=== PATIENT | male | born 1985 | race Caucasian/White ===

== ENCOUNTER 2018-08-01 12:03 | Inpatient (IN) | payer MEDICAID ==
[~2018-08-01] VITALS: Ht 180.3 cm; Wt 97.5 kg
[2018-08-01] MEDS ORDERED: SUMA50TA PO (12:16)
[2018-08-01] MEDS ORDERED: METO10TA3 PO (12:16)
[2018-08-01] MEDS ORDERED: TORADOL PO (12:17)
[2018-08-01] MEDS ORDERED: diphenhydrAMINE 50 MG/1 ML VIAL IV ONE (12:30)
[2018-08-01] MEDS ORDERED: METOCLOPRAMIDE HCL 10 MG/2 ML VIAL IV ONE (12:30)
[2018-08-01] MEDS ORDERED: CEFTRIAXONE 1 G in IV DEXTROSE 5% 50 ML IV ONE ×2 (12:30→13:30)
[2018-08-01] MEDS ORDERED: MORPHINE SULFATE 2 MG/1 ML DISP.SYRIN IV ONE (12:30)
[2018-08-01] MEDS ORDERED: MORPHINE SULFATE 4 MG/1 ML DISP.SYRIN ONE (12:38)
[2018-08-01] MEDS ORDERED: diphenhydrAMINE 50 MG/1 ML VIAL ONE (12:38)
[2018-08-01] MEDS ORDERED: METOCLOPRAMIDE HCL 10 MG/2 ML VIAL ONE (12:38)
[2018-08-01] MEDS ORDERED: CEFTRIAXONE 1 G VIAL ONE ×2 (12:39→13:27)
[2018-08-01] MEDS ORDERED: HYDROMORPHONE 1 MG/1 ML DISP.SYRIN ONE ×3 (12:59→16:04)
[2018-08-01] MEDS ORDERED: ONDANSETRON 4 MG/2 ML VIAL ONE ×3 (12:59→16:04)
[2018-08-01] MEDS ORDERED: ONDANSETRON 4 MG/2 ML VIAL IV ONE ×2 (13:00→16:00)
[2018-08-01] MEDS ORDERED: HYDROMORPHONE 1 MG/1 ML DISP.SYRIN IV ONE ×3 (13:00→16:00)
[2018-08-01] MEDS ORDERED: IV NORMAL SALINE 1000 ML BAG IV ONE (13:30)
[2018-08-01 13:37] LABS: BASOPHILS % (AUTO) 0.2 % (0.0-2.0); EOSINOPHILS % (AUTO) 0.1 % (0.0-7.0); HEMATOCRIT 45.1 % (36.7-47.1); HEMOGLOBIN 15.5 g/dL (12.5-16.3); LYMPHOCYTES # (AUTO) 0.5 K/uL (20.0-40.0); LYMPHOCYTES % (AUTO) 4.1 % (20.5-51.5); MEAN CORPUSCULAR HEMOGLOBIN 30.5 uug (23.8-33.4); MEAN CORPUSCULAR HGB CONC 34 g/dL (32.5-36.3); MEAN CORPUSCULAR VOLUME 88.7 fL (73.0-96.2); MONOCYTES # (AUTO) 0.7 K/uL (2.0-10.0); MONOCYTES % (AUTO) 5.3 % (0.0-11.0); NEUTROPHILS # (AUTO) 12.2 K/uL (1.8-8.9); NEUTROPHILS % (AUTO) 90.3 % (38.5-71.5); PLATELET COUNT (AUTO) 313 K/uL (152-348); RED BLOOD CELL COUNT(AUTO) 5.08 MIL/uL (4.06-5.63); WHITE BLOOD COUNT (AUTO) 13.5 K/uL (3.6-10.2)
[2018-08-01 13:44] LABS: CREATININE 1.1 mg/dL (0.6-1.3); POTASSIUM 3.6 mmol/L (3.5-5.1)
--- NOTE | 2018-08-01 13:47 | NUR ---
Called IR Dr Hogue @ phone number [phone] @ [phone]. Per , to have ER Dr Velasco call him in regards to LP.
[2018-08-01 13:50] LABS: BILIRUBIN,TOTAL 0.8 mg/dL (0.2-1.0); TOTAL PROTEIN, SERUM 7.7 g/dL (6.4-8.2)
[2018-08-01 15:22] LABS: CSF GLUCOSE 67 mg/dL (40-70); CSF PROTEIN 72 mg/dL (15-45)
[2018-08-01] MEDS ORDERED: MAGNESIUM HYDROXIDE 30 ML LIQUID UDC PO PRN (15:30)
[2018-08-01] MEDS ORDERED: TEMAZEPAM 15 MG CAPSULE PO PRN (15:30)
[2018-08-01] MEDS ORDERED: HYDROCODONE/APAP 10-325 MG TABLET PO PRN (15:30)
[2018-08-01 17:08] VITALS: BP 120/69
--- NOTE | 2018-08-01 17:09 | NUR ---
Pt. admitted to [facility], under care of Rito Negron Belongs List completed
--- NOTE | 2018-08-01 17:15 | NUR ---
NEW PATIENT FROM ER TO ROOM 205 AWAKE ALERT COOPERATE WELL VS TAKEN LOW GRADE TEMP NO PAIN OR N/V AT THIS TIME CALL SYSTEM INSTRUCTION CONTINUE IVF ON LFA INFUSION WELL
--- NOTE | 2018-08-01 18:30 | NUR ---
EAT DINNER WELL FAMILY FRIEND AT BEDSIDE RESTING
[2018-08-01] MEDS: IV NS 1000 ML 1,000 ML IV PRN (18:42)
--- NOTE | 2018-08-01 19:20 | NUR ---
RECEIVED PT AWAKE,ALERT, AND ORIENTEDX4. PT SHOWS NO SIGNS OF ACUTE DISTRESS. CALL LIGHT WITHIN REACH.PT GIRLFRIEND ON BEDSIDE. SAFETY AND COMFORT PROVIDED. WILL CONTINUE TO MONITOR.
[2018-08-01 20:25] VITALS: BP 111/59
[2018-08-01] MEDS ORDERED: FLUCONAZOLE 200 MG/NS 100ML IV 100 MG in PREMIXED 1 EACH IV SCH ×2 (20:30→20:45)
[2018-08-01] MEDS: ONDANSETRON 4 MG/2 ML VIAL IV PRN (20:36)
[2018-08-01] MEDS: ACETAMINOPHEN 325 MG TABLET PO PRN (20:36)
[2018-08-01] MEDS: HYDROMORPHONE 1 MG/1 ML DISP.SYRIN IV PRN (20:37)
--- NOTE | 2018-08-01 20:37 | NUR ---
PT GIVEN ZOFRAN FOR NAUSEA AND DILAUDID FOR PAIN. PT VITAL SIGNS STABLE. WILL CONTINUE TO MONITOR.
[2018-08-01] MEDS ORDERED: NYSTATIN SUSPENSION 5 ML LIQUID UDC PO SCH (21:00)
[2018-08-01] MEDS ORDERED: VANCOMYCIN IV 200 ML IV SCH (21:00)
[2018-08-01] MEDS: NYSTATIN SUSPENSION 5 ML LIQUID UDC PO SCH (21:09)
[2018-08-01] MEDS ORDERED: FLUCONAZOLE 200 MG/100 ML PIGGYBACK ONE (21:33)
[2018-08-02] MEDS ORDERED: VANCOMYCIN IV 200 ML ONE (00:16)
[2018-08-02] MEDS: HYDROMORPHONE 1 MG/1 ML DISP.SYRIN IV PRN ×4 (00:39→13:20)
--- NOTE | 2018-08-02 00:48 | NUR ---
PT TEMPERATURE AT 2332H WAS 100.5. GAVE COOLING MEASURES TO THE PT. AT 0041H TEMP OF THE PT WAS 99.6. PT SHOWS NO SIGNS OF DISTRESS BUT PT CAOMPLAIN OF HEADACHE SO 0039H GAVE DIALUDID 1MG. SAFETY AND COMFORT PROVIDED. WILL CONTINUE TO MONITOR.
[2018-08-02] MEDS: ACETAMINOPHEN 325 MG TABLET PO PRN ×2 (03:52→14:33)
[2018-08-02 04:53] VITALS: BP 140/61
[2018-08-02 06:07] LABS: BASOPHILS % (AUTO) 0.2 % (0.0-2.0); HEMATOCRIT 41.3 % (36.7-47.1); HEMOGLOBIN 14.1 g/dL (12.5-16.3); LYMPHOCYTES # (AUTO) 0.7 K/uL (20.0-40.0); LYMPHOCYTES % (AUTO) 4.7 % (20.5-51.5); MEAN CORPUSCULAR HEMOGLOBIN 30.5 uug (23.8-33.4); MEAN CORPUSCULAR HGB CONC 34 g/dL (32.5-36.3); MEAN CORPUSCULAR VOLUME 89.3 fL (73.0-96.2); MONOCYTES # (AUTO) 1.5 K/uL (2.0-10.0); MONOCYTES % (AUTO) 10.5 % (0.0-11.0); NEUTROPHILS # (AUTO) 12.2 K/uL (1.8-8.9); NEUTROPHILS % (AUTO) 84.6 % (38.5-71.5); PLATELET COUNT (AUTO) 267 K/uL (152-348); RED BLOOD CELL COUNT(AUTO) 4.62 MIL/uL (4.06-5.63); WHITE BLOOD COUNT (AUTO) 14.4 K/uL (3.6-10.2)
[2018-08-02 06:23] LABS: MAGNESIUM 1.5 mg/dL (1.8-2.4); PHOSPHOROUS 2.4 mg/dL (2.5-4.9)
--- NOTE | 2018-08-02 06:35 | NUR ---
PT SLEPT INTERMITTENTLY. PT SHOWS NO SIGNS OF DISTRESS. PT RECENT TEMP IS 99.7. COOLING MEASURES DONE. PT BECOME 100.5 AGAIN NOW AFEBRILE.PT IV INTACT. PRESCRIBED MEDICATION GIVEN AND PT TOLERATED IT WELL. CALL LIGHT WITHIN REACH. SAFETY AND COMFORT PROVIDED.ALL NEEDS ARE MET. WILL ENDORSE TO INCOMING NURSE FOR CONTINUITY OF CARE.
[2018-08-02] MEDS: IV NS 1000 ML 1,000 ML IV PRN (07:39)
[2018-08-02] MEDS ORDERED: MAGNESIUM SULFATE/D5W 100 ML IV SCH (08:15)
[2018-08-02] MEDS ORDERED: IV NS 1000 ML 1,000 ML IV PRN (08:25)
[2018-08-02] MEDS ORDERED: NEUTRA PHOS PACKET PO ONE (08:30)
[2018-08-02] MEDS ORDERED: POTASSIUM CHLORIDE 20 MEQ TAB.PRT.SR PO ONE ×3 (08:30→13:00)
[2018-08-02] MEDS: NYSTATIN SUSPENSION 5 ML LIQUID UDC PO SCH ×2 (08:47→13:23)
[2018-08-02] MEDS: ONDANSETRON 4 MG/2 ML VIAL IV PRN (08:48)
[2018-08-02] MEDS ORDERED: VANCOMYCIN IV 1,500 MG in IV DEXTROSE 5% 500 ML IV SCH (09:00)
[2018-08-02 11:50] VITALS: BP 114/62
[2018-08-02] MEDS ORDERED: CEFTRIAXONE 2 G in IV DEXTROSE 5% 100 ML IV SCH (12:45)
[2018-08-02] MEDS ORDERED: CEFTRIAXONE 1 G in IV DEXTROSE 5% 50 ML IV SCH (13:00)
[2018-08-02] MEDS ORDERED: CEFTRIAXONE 2 G in IV DEXTROSE 5% 50 ML IV SCH (13:00)
[2018-08-02] MEDS ORDERED: ACYCLOVIR IV 500 MG in IV DEXTROSE 5% 100 ML IV SCH (14:00)
--- NOTE | 2018-08-02 14:39 | NUR ---
Clinical Pharmacy Note: Vancomycin Pharmacy to Dose Subjecitve: To start vancomycin in this 32 y/o male for indication of "documented infection." MDs evaluating for possible bacterial meningitis Objective: weight 97kg height 180cm BUN 16 Scr 1.0 Wbc 14.4 temp 103.1 1gm given 08/02 @0026 Trough due tomorrow at 1130 Assessment/Plan To start vanco 1500mg Q9h for estimated trough of 16.6, first dose today at 0900. Trough due tomorrow at 1130, will check trough at that time and adjust as needed. Will follow
--- NOTE | 2018-08-02 15:25 | NUR ---
PT DC TO [facility] VIA [facility]. PT STABLE TO DC, AOX4, VISITOR AT BEDSIDE, ROOM AIR, SKIN INTACT, DC WITH IV LEFT FOREARM 20 GAUGE PATENT, AMBULATORY. PT DC WITH EXIT CARE PACKET, AND ALL BELONGINGS AND VALUABLES. REPORT GIVEN TO JEAN MARIE OWENS.
[2018-08-02 16:40] VITALS: BP 114/62
== END 2018-08-02 15:25 | disposition short-term general hospital (02) | DRG 720 ==
LOC: ER 12:03 → MED 16:42
PROVIDERS: ADMIT Nurse Practitioner Acute Care; ATTEND Nurse Practitioner Acute Care
PROC: 009U3ZX Drainage of Spinal Canal, Percutaneous Approach, Diagnostic (ICD-10-PCS; principal; 2018-08-01)
PROC: B01BYZZ Fluoroscopy of Spinal Cord using Other Contrast (ICD-10-PCS; principal; 2018-08-01)
DX: A41.9 Sepsis, unspecified organism (principal); B37.5 Candidal meningitis; G00.9 Bacterial meningitis, unspecified; A87.9 Viral meningitis, unspecified; E83.39 Other disorders of phosphorus metabolism; B37.0 Candidal stomatitis; E83.42 Hypomagnesemia; E66.9 Obesity, unspecified; Z68.30 Body mass index [BMI] 30.0-30.9, adult; Z88.0 Allergy status to penicillin; E87.6 Hypokalemia; F12.90 Cannabis use, unspecified, uncomplicated
CPT/HCPCS: 36415; 62270; 70450; 83735; 84100; 84157; 85025; 87040; 87086; 87205; 89051; A4663; J0133; J0696; J1170; J1200; J1450; J2270; J2405; J2765; J3370; J3475; J3490; J7030; J7060

== ENCOUNTER 2020-12-02 17:28 | Emergency (ER) | payer MEDICAID, OTHER ==
[~2020-12-02] VITALS: Ht 180.3 cm; Wt 81.6 kg
[2020-12-02] MEDS ORDERED: CLINDAMYCIN PHOSPHATE IV 900 MG in IV DEXTROSE 5% 100 ML IV ONE (18:00)
[2020-12-02] MEDS ORDERED: CLINDAMYCIN 900MG/D5W 100ML IVPB **ER PYXIS ONLY IJ ONE (18:12)
[2020-12-02] MEDS ORDERED: MORPHINE SULFATE 2 MG/1 ML DISP.SYRIN IV ONE (18:15)
[2020-12-02] MEDS ORDERED: MORPHINE SULFATE 2 MG/1 ML DISP.SYRIN ONE (18:20)
--- NOTE | 2020-12-02 18:24 | NUR ---
Pt signed consent for CT w/ IV contrast, placed in the chart.
[2020-12-02 18:26] LABS: BASOPHILS % (AUTO) 0.3 % (0.0-2.0); EOSINOPHILS % (AUTO) 0.4 % (0.0-7.0); HEMATOCRIT 46.8 % (36.7-47.1); HEMOGLOBIN 15.5 g/dL (12.5-16.3); LYMPHOCYTES % (AUTO) 8.6 % (20.5-51.5); MEAN CORPUSCULAR HEMOGLOBIN 30.1 uug (23.8-33.4); MEAN CORPUSCULAR HGB CONC 33 g/dL (32.5-36.3); MONOCYTES # (AUTO) 1.2 K/uL (2.0-10.0); MONOCYTES % (AUTO) 10.1 % (0.0-11.0); NEUTROPHILS # (AUTO) 9.6 K/uL (1.8-8.9); NEUTROPHILS % (AUTO) 80.6 % (38.5-71.5); PLATELET COUNT (AUTO) 436 K/uL (152-348); RED BLOOD CELL COUNT(AUTO) 5.14 MIL/uL (4.06-5.63); WHITE BLOOD COUNT (AUTO) 11.9 K/uL (3.6-10.2)
[2020-12-02 18:39] LABS: CREATININE 1.1 mg/dL (0.6-1.3); POTASSIUM 3.9 mmol/L (3.5-5.1)
[2020-12-02 18:47] LABS: BILIRUBIN,DIRECT 0.2 mg/dL (0.0-0.2); BILIRUBIN,TOTAL 0.8 mg/dL (0.2-1.0); TOTAL PROTEIN, SERUM 7.9 g/dL (6.4-8.2)
--- NOTE | 2020-12-02 19:51 | NUR ---
Pt out of ER for CT.
[2020-12-02] MEDS ORDERED: SWABABLE VALVE TRANSFER SET EA MC ONE (19:57)
[2020-12-02] MEDS ORDERED: IV NORMAL SALINE 250 ML IV ONE (19:57)
[2020-12-02] MEDS ORDERED: IOHEXOL 300MG/ML 100 ML INFUS..BTL ONE (19:57)
--- NOTE | 2020-12-02 20:06 | NUR ---
Pt back to ER from CT.
--- NOTE | 2020-12-02 21:01 | NUR ---
Patient discharged to home in stable condition. Written and verbal after care instructions given. Patient verbalizes understanding of instructions. Stressed follow up or return to ER for worsening s/s. Patient out of ER with steady gait, no acute signs of distress, VSS, all belongings taken, IV site discontinued, provided with copies of lab and CT results.
[2020-12-02 21:02] VITALS: BP 135/85
== END 2020-12-02 21:03 | disposition home or self-care (01) ==
LOC: ER 17:28
DX: L03.211 Cellulitis of face (principal); J32.9 Chronic sinusitis, unspecified; K02.9 Dental caries, unspecified; Z88.1 Allergy status to other antibiotic agents; Z86.16 Personal history of COVID-19
CPT/HCPCS: 36415; 70487; 80048; 80076; 83605; 85025; 85610; 85730; 87040 ×2; 96365; 96375; 99285; J2270; J3490; Q9967; A4663; J7050